=== PATIENT | male | born 1940 | race Caucasian/White ===

== ENCOUNTER → 2018-02-17 | Outpatient (CLI) | payer MEDICARE, OTHER ==
--- NOTE | 2018-02-17 15:49 | RADIOLOGY REPORT (SQ) ---
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 RADIONUCLIDE AND DOSE: 20.8 millicuries Tc99m HDP. The route of agent administration: Intravenous. ADDITIONAL DRUGS AND DOSES: None. TECHNIQUE: Routine delayed images at greater than 2 hours post radionuclide injection acquired of th e bony skeleton including anterior and posterior whole-body projections and additional focused images as needed. LIMITATIONS: None. FINDINGS: BONES: Focal of activity in the posterior 9th and 10th left ribs consistent with the histo ry of rib fractures. No available radiographs. Activity in the ankles typical of degenerative bhagat e. No suspicious lesions. KIDNEYS: Symmetric excretion without obstruction. OTHER: No other significant finding. IMPRESSION: Activity in the 10th and 11th posteromedial left ribs consistent with patient's history of rib fractures. No available radiographs. No area suspicious metastatic disease. COMMENT: Quality measure 147: No available prior imaging studies for comparison TECHNICAL DOCUMENTATION: JOB ID: [id number] [employer]- All Rights Reserved Reading location - IP/workstation name: [email or web address]
== END ==
LOC: RAD 10:48
PROVIDERS: ATTEND Urology
DX: C61 Malignant neoplasm of prostate (principal)
CPT/HCPCS: 78306; A9561; Q9969

== ENCOUNTER → 2018-04-17 | Outpatient (CLI) | payer MEDICARE ==
[2018-04-17 16:24] LABS: ABSOLUTE BASOPHILS # (AUTO) 0.1 10^3/uL (0.0-0.2); ABSOLUTE EOSINOPHILS # (AUTO) 0.2 10^3/uL (0.0-0.6); ABSOLUTE LYMPHOCYTES (AUTO) 1.3 10^3/uL (0.5-4.7); ABSOLUTE MONOCYTES (AUTO) 0.6 10^3/uL (0.1-1.4); ABSOLUTE NEUT (AUTO) 5.8 10^3/uL (1.7-8.2); BASOPHILS % (AUTO) 0.9 % (0-2); EOSINOPHILS % (AUTO) 2.5 % (0-6); HEMATOCRIT 42.5 % (37.9-51.0); HEMOGLOBIN 14.8 g/dL (13.5-17.0); LYMPHOCYTES % (AUTO) 16.3 % (13-45); MEAN CORPUSCULAR HEMOGLOBIN 31.2 pg (27.0-33.4); MEAN CORPUSCULAR HGB CONC 34.9 g/dL (32.0-36.0); MEAN CORPUSCULAR VOLUME 89 fl (80-97); PLATELET COUNT 256 10^3/uL (150-450); RED BLOOD COUNT 4.76 10^6/uL (4.35-5.55); RED CELL DISTRIBUTION WIDTH 14.3 % (11.5-14.0); SEGMENTED NEUTROPHILS % (AUTO) 72.3 % (42-78); TOTAL CELLS COUNTED % (AUTO) 100 %; WHITE BLOOD COUNT 8.1 10^3/uL (4.0-10.5)
[2018-04-17 16:48] LABS: BLOOD UREA NITROGEN 22 mg/dL (7-20)
== END ==
LOC: OD 15:06
PROVIDERS: ATTEND Radiology Radiation Oncology
DX: C61 Malignant neoplasm of prostate (principal); R97.20 Elevated prostate specific antigen [PSA]
CPT/HCPCS: 36415; 82565; 84153; 84520; 85025

== ENCOUNTER → 2019-05-10 | Outpatient (CLI) | payer MEDICARE ==
--- NOTE | 2019-05-10 10:08 | RADIOLOGY REPORT (SQ) ---
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 No oral contrast. Images reviewed with lung, soft tissue, and bone windows. Reconstructed coronal and sagittal MPR images reviewed. Delayed images for evaluation of the urinary system also acquired. All images stored on PACS. All CT scanners at this facility use dose modulation, iterative reconstruction, and/or weight based d osing when appropriate to reduce radiation dose to as low as reasonably achievable (ALARA). [facility]: Dose Right [facility]: CareDose [facility]: Dose Right [facility]: Teradose 4D [facility]: Readbug CONTRAST TYPE AND DOSE: contrast/concentration: Isovue 350.00 mg/ml; Total Contrast Delivered: 100.0 ml; Total Saline Delivered: 32.8 ml RENAL FUNCTION: Creatinine 1.0 RADIATION DOSE: . LIMITATIONS: None. FINDINGS: LOWER CHEST: See separate report of the CT of the chest. LIVER: Normal size. No masses. No dilated ducts. SPLEEN: Normal size. No focal lesions. PANCREAS: No masses. No significant calcifications. No adjacent inflammation or peripancreatic fluid collections. Pancreatic duct not dilated. GALLBLADDER: Cholelithiasis. Nondilated gallbladder. No adjacent inflammatory change or wall thicke brock. ADRENAL GLANDS: No significant masses or asymmetry. RIGHT KIDNEY AND URETER: No solid masses. There is a upper pole cyst measuring 9.6 cm. No signific ant calcifications. No hydronephrosis or hydroureter. LEFT KIDNEY AND URETER: No solid masses. No significant calcifications. No hydronephrosis or hydr oureter. AORTA AND VESSELS: Aortoiliac atherosclerosis without aneurysm. No dissection. Renal arteries, SMA, c eliac without stenosis. RETROPERITONEUM: Shotty mesenteric and retroperitoneal lymph nodes with enlarged para-aortic node jayson suring 2.0 cm in short axis (series 3, image 47). No retroperitoneal hemorrhage. BOWEL AND PERITONEAL CAVITY: No evidence of intestinal obstruction. No focal bowel wall thickening. Scattered colonic diverticulosis. Ill-defined mesenteric stranding and shotty mesenteric lymph node s with additional enlarged mesenteric nodes. For reference there is a 1.5 cm short axis mesenteric n ode within the left abdomen (series 3, image 38). APPENDIX: Normal. PELVIS: Mild circumferential bladder wall thickening. Metallic seeds within the prostate. ABDOMINAL WALL: No masses. No hernias. BONES: No acute bony abnormality. No discrete lytic or blastic osseous lesions. Chronic posterior l ower right rib fractures. Lower lumbar spondylosis greatest at L3-4. OTHER: No other significant finding. IMPRESSION: 1. Retroperitoneal and mesenteric adenopathy suspicious for metastatic disease or lymph oproliferative disorder. 2. Cholelithiasis. 3. No other evidence of acute intra-abdominal/pelvic process. TECHNICAL DOCUMENTATION: JOB ID: [id number] Quality ID # [id number]: Final reports with documentation of one or more dose reduction techniques (e.g., Au tomated exposure control, adjustment of the mA and/or kV according to patient size, use of iterative reconstruction technique) 2010 [employer]- All Rights Reserved Reading location - IP/workstation name: [email or web address]
--- NOTE | 2019-05-10 11:20 | RADIOLOGY REPORT (SQ) ---
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 Images reviewed with lung, soft tissue and bone windows. Reconstructed coronal and sagittal MPR and MIP images reviewed. All images stored on PACS. All CT scanners at this facility use dose modulation, iterative reconstruction, and/or weight based d osing when appropriate to reduce radiation dose to as low as reasonably achievable (ALARA). [facility]: Dose Right [facility]: CareDose [facility]: Dose Right [facility]: Teradose 4D [facility]: [employer] CONTRAST TYPE AND DOSE: 100 mL of IV Omnipaque 350- low osmolar. RENAL FUNCTION: Creatinine 1.0 RADIATION DOSE: CT Rad equipment meets quality standard of care and radiation dose reduction techniq ues were employed. CTDIvol: 12.1 - 18.4 mGy. DLP: 2407 mGy-cm. . LIMITATIONS: None. FINDINGS: LUNGS AND PLEURA: In the posterior aspect right upper lobe, chronic appearing volume loss and consolidation is present with bandlike scarring in the posterior left upper lobe. There is adjac ent retraction of the major fissure, and air bronchograms in the area of scarring/ consolidation. Th is measures about 4 x 1.3 cm in the posterior right lung apex on axial images 27-39. Remainder of the lungs demonstrate multiple calcified granulomas bilaterally. No acute infiltrates. No pleural effusion. No pneumothorax. HILAR AND MEDIASTINAL STRUCTURES: No identified masses or abnormal nodes. HEART AND VASCULAR STRUCTURES: No cardiomegaly. Small pericardial effusion. Minimal calcifications aortic valve, mitral valve, and coronary arterieis HARDWARE: None in the chest. UPPER ABDOMEN: Please see CT abdomen pelvis report THYROID AND OTHER SOFT TISSUES: No masses. No adenopathy. BONES: Old healed fractures of the posterior right 9th and 10th ribs. There is new patchy sclerosis in the posterior right 6th rib which could represent metastatic disease given history of prostate can cer OTHER: No other significant finding. IMPRESSION: Sclerosis in the right posterior 6th rib, question metastatic disease from prostate canc er Old right lower posterior rib fractures Chronic volume loss and scarring in the right upper lobe. TECHNICAL DOCUMENTATION: JOB ID: [id number] Quality ID # [id number]: Final reports with documentation of one or more dose reduction techniques (e.g., Au tomated exposure control, adjustment of the mA and/or kV according to patient size, use of iterative reconstruction technique) 2010 [employer]- All Rights Reserved Reading location - IP/workstation name: [email or web address]
--- NOTE | 2019-05-10 13:14 | RADIOLOGY REPORT (SQ) ---
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 The route of agent administration: Intravenous. ADDITIONAL DRUGS AND DOSES: None. TECHNIQUE: Routine delayed images at 2 hour post radionuclide injection acquired of the bony skeleto n including anterior and posterior whole-body projections and additional focused images as needed. LIMITATIONS: None. FINDINGS: BONES: Persistent but decreased uptake within the posterior right 9th and 10th ribs corres ponding to healing fractures on same day CT. Focus of increased activity within the left cervical sp ine. Mild symmetric uptake at the shoulders knees and ankles most compatible with degenerative bhagat e. No other new areas of abnormal uptake. KIDNEYS: Symmetric excretion without obstruction. OTHER: No other significant finding. IMPRESSION: 1. Persistent but decreased uptake within the posterior right rib 9th and 10th ribs cor responding to healing fractures on same day CT. No increased uptake within the posterior right rib c orresponding to the sclerotic lesion seen on same day CT. 2. Single focus of activity within the left cervical spine, likely degenerative. No imaging availab le for comparison. 3. No other suspicious areas of abnormal tracer uptake. COMMENT: Quality measure 147: Current bone scan is compared with any available plain radiographs, p rior bone scans, and CT/MRI. TECHNICAL DOCUMENTATION: JOB ID: [id number] [employer] All Rights Reserved Reading location - IP/workstation name: [email or web address]
== END ==
LOC: RAD 07:43
PROVIDERS: ATTEND Urology
DX: C61 Malignant neoplasm of prostate (principal); C77.5 Secondary and unspecified malignant neoplasm of intrapelvic lymph nodes
CPT/HCPCS: 82565; 78306; 71260; 74177; A9561; Q9969